=== PATIENT | male | born 1970 | race Caucasian/White ===

== ENCOUNTER 2025-04-17 08:32 | Emergency (ER) | payer MEDICAID ==
[~2025-04-17] VITALS: Ht 175.3 cm; Wt 101.0 kg
[2025-04-17 09:01] VITALS: O2SAT 100
[2025-04-17 10:27] LABS: HEMATOCRIT. 53.5 % (42.0-52.0); HEMOGLOBIN. 17.6 g/dL (14.0-18.0); MEAN PLATELET VOLUME 10.6 fl (7.4-10.4); PLATELET 128 x1000/uL (130-400); RED BLOOD CELL COUNT 5.66 mill/uL (4.7-6.1); RED CELL DISTRIBUTION WIDTH 14.6 % (11.6-14.6)
[2025-04-17 10:50] LABS: CLARITY URINE CLOUDY (CLEAR); COLOR URINE ORANGE (YELLOW); GLUCOSE URINE 2+ (NEGATIVE); KETONES URINE 2+ (NEGATIVE); LEUKOCYTE ESTERASE URINE 2+ (NEGATIVE); NITRITE URINE POSITIVE (NEGATIVE); OCCULT BLOOD URINE NEGATIVE (NEGATIVE); PH URINE 5.5 (4.5-8.0); PROTEIN URINE 3+ (NEGATIVE); SPECIFIC GRAVITY URINE 1.041 (1.005-1.030); UROBILINOGEN URINE 1.0 E.U./dL (0.2-1.0)
[2025-04-17 11:13] LABS: CREATININE 0.9 mg/dL (0.6-1.3); UREA NITROGEN BLOOD 8 mg/dL (9-23)
[2025-04-17 11:24] LABS: SQUAMOUS EPITHELIAL CELL URINE 1+ /lpf (RARE/1+)
[2025-04-17 11:25] LABS: RBC URINE 0-2 /hpf (0-2)
[2025-04-17 11:26] LABS: BACTERIA URINE 2+; MUCUS URINE 2+ /lpf (NONE/TRACE)
[2025-04-17 11:27] LABS: BAND% 18.0 % (1.0-6.0); EOSINOPHILS % MANUAL 3.0 % (0.0-5.0); LYMPHOCYTES % MANUAL 7.0 % (20.0-50.0); MONOCYTES % MANUAL 3.0 % (2.0-8.0); NEUTROPHILS % MANUAL 69.0 % (45.0-75.0); PLATELET ESTIMATE SLIGHTLY DECREASED
[2025-04-17 11:51] LABS: ASPARTATE AMINOTRANSFERASE 159 IU/L (<34); BILIRUBIN DIRECT 1.1 mg/dL (<=3.0); BILIRUBIN TOTAL 3.2 mg/dL (0.1-1.0); PROTEIN TOTAL 7.7 g/dL (6.0-8.3)
[2025-04-17] MEDS: SODIUM CHLORIDE 0.9% (SEPSIS BOLUS) IV ONE (12:24)
[2025-04-17] MEDS: PIPERACILLIN/TAZO 3.375G/50ML 50 ML IV ONE (12:38)
[2025-04-17] MEDS: LEVOFLOXACIN 500MG PREMIX 100 ML IV ONE (12:44)
[2025-04-17] MEDS ORDERED: CLONIDINE 0.1MG TABLET PO PRN (13:00)
[2025-04-17] MEDS ORDERED: IPRATROPIUM/ALBUTEROL 0.5-3(2.5)MG/3ML NEB HHN PRN (13:00)
[2025-04-17] MEDS ORDERED: LORAZEPAM 0.5MG TABLET PO PRN (13:00)
[2025-04-17] MEDS: SODIUM CHLORIDE 0.9% 1,000 ML IV SCH (13:00)
[2025-04-17] MEDS ORDERED: ONDANSETRON HCL 4MG/2ML INJ IV PRN (13:00)
[2025-04-17] MEDS ORDERED: ACETAMINOPHEN 325MG TABLET PO PRN ×2 (13:00)
[2025-04-17] MEDS ORDERED: LORAZEPAM 2MG/ML UD SYRINGE IV PRN (13:00)
[2025-04-17] MEDS: VANCOMYCIN 1G PREMIX 200 ML IV ONE (13:20)
[2025-04-17] MEDS: CEFTRIAXONE 1GM/50ML 50 ML IV ONE (13:45)
[2025-04-17] MEDS ORDERED: ENOXAPARIN 40MG/0.4ML SYR SUBCUT SCH (14:00)
[2025-04-17 14:01] VITALS: BP 151/102; PULSE 79; RESP 18; TEMP 37.1; O2SAT 99
[2025-04-17] MEDS ORDERED: CEFTRIAXONE 1GM/50ML 50 ML IV SCH (15:00)
[2025-04-17 15:26] LABS: TROPONIN I HIGH SENSITIVITY 16 ng/L (3.0-53)
[2025-04-17] MEDS ORDERED: PANTOPRAZOLE SODIUM 40 MG/VIAL IV SCH (17:00)
[2025-04-17] MEDS ORDERED: AMLODIPINE 10MG TABLET PO SCH (17:00)
[2025-04-17] MEDS ORDERED: FOLIC ACID 1 MG, THIAMINE HCL 100 MG, MVI, ADULT NO.1 10 ML in DEXTROSE 5% WATER 1,000 ML IV ONE (18:00)
== END 2025-04-17 17:25 | disposition left against medical advice (07) ==
LOC: ER 08:32 → EDBEDREQ 10:11 → EDBEDREQSVC 12:04 → EDBEDREQTM 12:04 → ER 17:25 → CANBEDREQ 17:35
DX: E11.9 Type 2 diabetes mellitus without complications (principal); N39.0 Urinary tract infection, site not specified; Z79.899 Other long term (current) drug therapy; Z68.32 Body mass index [BMI] 32.0-32.9, adult
CPT/HCPCS: 99291; 74176; 96365; 96367; 96366; 80076; 80048; 81003; 82553; 83036; 83605; 83690; 85025; 87040; 84484; 84145; 71045; 93005; 36415; J1956; J3490 ×2; J2543; J3411; J3373; J7070; J7030; A4606